=== PATIENT | female | born 1990 | race Caucasian/White ===

== ENCOUNTER 2016-08-22 01:02 | Emergency (ER) | payer OTHER ==
[~2016-08-22] VITALS: Ht 149.9 cm; Wt 49.5 kg
[2016-08-22 01:07] VITALS: Ht 149.9 cm; Wt 49.5 kg
[2016-08-22] MEDS ORDERED: METOCLOPRAMIDE 10 MG INJ IV STA (03:58)
[2016-08-22] MEDS ORDERED: SOD CHLORIDE 0.9% 1,000 ML IV STA (03:58)
[2016-08-22 04:30] LABS: ADD UMIC YES; URINE BILIRUBIN (Dip) NEGATIVE (NEGATIVE); URINE BLOOD (Dip) NEGATIVE (NEGATIVE); URINE COLOR LT. YELLOW (YELLOW); URINE GLUCOSE (Dip) NEGATIVE (NEGATIVE); URINE KETONES (Dip) 40 (NEGATIVE); URINE LEUKOCYTE ESTERASE (Dip) TRACE (NEGATIVE); URINE NITRITE (Dip) NEGATIVE (NEGATIVE); URINE TOTAL PROTEIN (Dip) TRACE (NEGATIVE); URINE UROBILINOGEN (Dip) 0.2 E.U./dL (0.1-1.0)
[2016-08-22] MEDS ORDERED: ACET325T33 PO (04:36)
[2016-08-22] MEDS ORDERED: METO10TA92 PO (04:36)
[2016-08-22 04:42] LABS: ADD SCAN DIFF NO
[2016-08-22 04:42] LABS: BACTERIA,URINE FEW; MUCUS,URINE OCCASIONAL; SQUAMOUS EPITHELIAL CELL,UR FEW; URINE RBCS NONE SEEN /HPF (0)
[2016-08-22] MEDS ORDERED: CEPH-443 PO (04:46)
[2016-08-22] MEDS ORDERED: ACETAMINOPHEN 500 MG TAB PO STA (04:57)
--- NOTE | 2016-08-22 04:57 | ERD ---
ER Documentation Chief Complaint Date/Time DATE: 08/22/16 TIME: 04:57 Chief Complaint abd pain x 2 days, denies vb. states 16 weeks HPI This is a 25-year-old female who is stating she 16 complaining of lower abdominal pain for the past 2 days. Patient rates it moderate in severity. She denies any vaginal bleeding. She admits to having a couple episodes of vomiting. She denies any diarrhea, fever, vaginal discharge. She denies dysuria ROS All systems reviewed and are negative except as per history of present illness. Medications Home Meds Active Scripts Cephalexin* (Keflex*) 500 Mg Capsule, 500 MG PO BID for 7 Days, CAP Prov:DAISHA HARRISON-Rola 08/22/16 Acetaminophen* (Tylenol*) 325 Mg Tablet, 2 TAB PO Q4 Y for PAIN AND OR ELEVATED TEMP, #20 TAB Prov:DAISHA HARRISON-C 08/22/16 Metoclopramide* (Reglan*) 10 Mg Tablet, 10 MG PO Q6 Y for NAUSEA AND/OR VOMITING , #10 TAB Prov:DAISHA HARRISON-C 08/22/16 Allergies Allergies: Coded Allergies: No Known Drug Allergies (Verified Allergy, Unknown, 08/22/16) PMhx/Soc Medical and Surgical Hx: pt denies Surgical Hx History of Surgery: No Hx Neurological Disorder: No Hx Respiratory Disorders: No Hx Cardiac Disorders: No Hx Psychiatric Problems: No Hx Miscellaneous Medical Probl: Yes (ANEMIA) Hx Alcohol Use: No Hx Substance Use: Yes (MARIJUANA) Hx Tobacco Use: Yes Smoking Status: Light tobacco smoker Physical Exam Vitals Vital Signs Date Time Temp Pulse Resp B/P Pulse Ox O2 Delivery O2 Flow Rate FiO2 08/22/16 01:07 98.6 95 20 133/85 100 Physical Exam \ General: well-developed/well-nourished, in no apparent distress, non-toxic appearing HENT: NC/AT, bilateral tympanic membrane is normal with good cone of light, nares patent, oropharynx clear without exudates Eyes: Conjunctiva normal, PERRLA, EOMI Neck: Supple, no lymphadenopathy Pulm: CTA bilaterally, no rales, rhonchi, or wheezing heard CV: Normal S1S2 GI: Soft, non-distended, normal bowel sounds, tender to palpation in pelvic region, negative rosvings, negative arteaga's Back: No midline tenderness, no masses, No CVAT Ext: No clubbing, cyanosis, or edema Neuro: Alert and Orientated, gait normal Skin: Intact, normal turgor Psych: Normal mood and mentation Result Diagram: 08/22/16 0424 Results 24 hrs Laboratory Tests Test 08/22/16 04:15 08/22/16 04:24 Urine Color LT. YELLOW Urine Clarity CLEAR Urine pH 6.0 Urine Specific [place] 1.025 Urine Ketones 40 Urine Nitrite NEGATIVE Urine Bilirubin NEGATIVE Urine Urobilinogen 0.2 E.U./dL Urine Leukocyte Esterase TRACE Urine Microscopic RBC NONE SEEN/HPF Urine Microscopic WBC 5-10/HPF Urine Squamous Epithelial Cells FEW Urine Bacteria FEW Urine Mucus OCCASIONAL Urine Hemoglobin NEGATIVE Urine Glucose NEGATIVE% Urine Total Protein TRACE White Blood Count 6.910^3/ul Red Blood Count 3.9310^6/ul Hemoglobin 10.3g/dl Hematocrit 31.3% Mean Corpuscular Volume 79.6fl Mean Corpuscular Hemoglobin 26.2pg Mean Corpuscular Hemoglobin Concent 32.9g/dl Red Cell Distribution Width 16.1% Platelet Count 90666^3/UL Mean Platelet Volume 9.7fl Neutrophils % 85.2% Lymphocytes % 11.0% Monocytes % 3.5% Eosinophils % 0.1% Basophils % 0.1% Nucleated Red Blood Cells % 0.0/100WBC Neutrophils # 5.910^3/ul Lymphocytes # 0.810^3/ul Monocytes # 0.210^3/ul Eosinophils # 0.010^3/ul Basophils # 0.010^3/ul Nucleated Red Blood Cells # 0.010^3/ul Current Medications Medications (Trade) Dose Ordered Sig/Kayden Route PRN Reason Start Time Stop Time Status Last Admin Dose Admin Sodium Chloride (NS) 1,000 ml @ 1,000 mls/hr Q1H STAT IV 08/22/16 03:58 08/22/16 04:57 DC 08/22/16 04:31 Metoclopramide HCl (Reglan) 10 mg ONCE STAT IV 08/22/16 03:58 08/22/16 04:01 DC 08/22/16 04:31 Acetaminophen (Tylenol Tab) 1,000 mg ONCE STAT PO 08/22/16 04:57 08/22/16 04:58 DC 08/22/16 05:02 Procedures/MDM This is a 25-year-old female who is 16 weeks presenting to the emergency department complaining of lower quadrant abdominal pain and vomiting which is likely due to a urinary tract infection in . There was no evidence of pyelonephritis, complete , ectopic . IV access was established. He was given 1 L fluids with Reglan, patient had some improvement. She is given Tylenol for pain. Lab work was done, CBC did not show any evidence of leukocytosis. Patient's ultrasound did not show any evidence of previa abrupt. A urinalysis did show trace leukocyte esterase with white count therefore patient will be empirically treated for urinary tract infection with Keflex. I discussed with patient to follow-up with her CERTIFIED CYTOTECHNOLOGIST. Discussed return to the ER for any worsening symptoms. Patient is hematuria stable for discharge. Departure Diagnosis: Primary Impression: Pelvic pain in Additional Impression: UTI in Condition: Fair Patient Instructions: Understanding Urinary Tract Infections (UTIs), Pelvic Pain In : Unclear (2-3 Trimester) Referrals: CERTIFIED CYTOTECHNOLOGIST [place] [id number] [facility] [address] [place], [place] [id number] OFFICE FAX [address]ABUSLEME [facility] [address] [place] [place] [id number] [facility] [address] [place], [place] [id number] MEGHA HARRIS [id number] [address] [address] [address] [place] [id number] [facility] [address] [place] [address] [address] [facility] [id number] - [address], [place] [address] [address] FISH, [place] [address], [place] [address] [address] [address] [place] [address] Additional Instructions: FOLLOW UP WITH YOUR PRIMARY CARE PHYSICIAN TOMORROW.Return to this facility if you are not improving as expected. Take all medicines as directed. Return to this facility if you are not improving as expected. DAISHA HARRISON PA-C Aug 22, 2016 04:57
[2016-08-22 04:58] LABS: BASOPHILS % 0.1 % (0.0-2.0); EOSINOPHILS % 0.1 % (0.0-7.0); HEMATOCRIT 31.3 % (37.0-47.0); HEMOGLOBIN 10.3 g/dl (12.0-16.0); LYMPHOCYTES # 0.8 10^3/ul (0.8-2.9); MEAN CORPUSCULAR HEMOGLOBIN 26.2 pg (29.0-33.0); MEAN CORPUSCULAR HGB CONC 32.9 g/dl (32.0-37.0); MEAN CORPUSCULAR VOLUME 79.6 fl (82.0-101.0); MEAN PLATELET VOLUME 9.7 fl (7.4-10.4); MONOCYTE # 0.2 10^3/ul (0.3-0.9); MONOCYTES % 3.5 % (0.0-11.0); NEUTROPHIL # 5.9 10^3/ul (1.6-7.5); NEUTROPHILS % 85.2 % (39.0-77.0); PLATELET COUNT 357 10^3/UL (140-415); RED BLOOD COUNT 3.93 10^6/ul (4.20-5.40); RED CELL DISTRIBUTION WIDTH 16.1 % (11.5-14.5); WHITE BLOOD COUNT 6.9 10^3/ul (4.8-10.8)
--- NOTE | 2016-08-22 05:27 | RADRPT ---
PROCEDURE: US OB. CLINICAL INDICATION: Pelvic pain TECHNIQUE: Multiple sonographic images of the pelvis were obtained. Transabdominal imaging only w as performed. The images were reviewed on a PACS workstation. COMPARISON: No prior studies are available for comparison. FINDINGS: There is a single live intrauterine gestation. Cardiac activity is present with 161 beats per minut e. position is breech. Measurements were made in order to determine age. The results are as follows: BPD = 3.31 cm HC = 12.29 cm AC = 10.70 cm FL = 1.98 cm. Estimated gestational age of approximately 16 weeks 2 days. The estimated date of delivery is 02/04/2017. The EFW = 150 g, 49 %ile. The placenta is posterior. There is no evidence for an abruption or placenta previa. There are no adnexal masses. The MVP measures 4.3 cm. IMPRESSION: 1. Single live intrauterine gestation of approximately 16 weeks 2 days, by ultrasound criteria. 2. The estimated date of delivery is 02/04/2017. RPTAT: HH .Floresita Adames MD, MD Date Time Electronically viewed and signed by .Floresita Adames MD, on 08/22/2016 05:34 .G/
[2016-08-22 05:42] LABS: ALBUMIN/GLOBULIN RATIO 1.11; CALCIUM 8.6 mg/dl (8.4-10.2); CREATININE 0.4 mg/dl (0.44-1.00); POTASSIUM 3.3 mmol/L (3.5-5.1); TOTAL PROTEIN 7.6 g/dl (6.1-8.1)
[2016-08-22 05:45] VITALS: BP 130/82; PULSE 90; RESP 20; TEMP 98.6
== END 2016-08-22 05:53 | disposition home or self-care (01) ==
LOC: FTE 01:02
DX: O26.892 Other specified pregnancy related conditions, second trimester (principal); R10.2 Pelvic and perineal pain; O23.42 Unspecified infection of urinary tract in pregnancy, second trimester; F17.210 Nicotine dependence, cigarettes, uncomplicated; O99.332 Smoking (tobacco) complicating pregnancy, second trimester; Z3A.16 16 weeks gestation of pregnancy
CPT/HCPCS: 76801; 80053; 81001; 83690; 84702; 85025; 87086; J2765; J7030; 36415; 81003; 96374